=== PATIENT | female | born 1985 | race Caucasian/White ===

== ENCOUNTER 2021-12-05 04:23 | Emergency (ER) | payer MEDICAID ==
[~2021-12-05] VITALS: Ht 144.8 cm; Wt 48.0 kg
[2021-12-05 04:30] VITALS: BP 113/65
[2021-12-05] MEDS ORDERED: ACETAMINOPHEN 325MG TABLET PO ONE (05:00)
[2021-12-05] MEDS ORDERED: IBUPROFEN 600MG TABLET PO ONE (05:00)
[2021-12-05] MEDS ORDERED: TOPUD MT (05:26)
[2021-12-05] MEDS ORDERED: NAPR-1176 MT (05:26)
== END 2021-12-05 06:01 | disposition home or self-care (01) ==
LOC: ER 04:23
DX: M62.838 Other muscle spasm (principal)
CPT/HCPCS: 81025; 99283